=== PATIENT | female | born 1990 | race Hispanic/Latino ===

== ENCOUNTER 2018-09-19 04:11 | Emergency (ER) | payer OTHER ==
[2018-09-19 04:17] VITALS: BMI 39.1
[2018-09-19 04:18] VITALS: RESP 16
--- NOTE | 2018-09-19 04:20 | ED PDOC ---
HPI: General Adult Time Seen by Provider: 09/19/18 04:14 Chief Complaint (Nursing): Lower Extremity Problem/Injury Chief Complaint (Provider): struck by box History Per: Patient (28 y/o female here for evaluation of injury to left foot/right hand after boxes dropped on left foot and she defended self with hand. Notes mild head injury with no LOC>) Past Medical History Reviewed: Historical Data, Nursing Documentation, Vital Signs Vital Signs: Last Vital Signs Temp 98.2 F 09/19/18 04:14 Pulse 79 09/19/18 04:14 Resp 16 09/19/18 04:14 BP 124/71 09/19/18 04:14 Pulse Ox 100 09/19/18 04:14 - Family History Family History: States: Unknown Family Hx (secondary to being adopted) - Home Medications Home Medications: Ambulatory Orders Medication Instructions Recorded Ibuprofen [Motrin] 600 mg PO Q8 PRN #21 tab 09/19/18 - Allergies Allergies/Adverse Reactions: Allergies Allergy/AdvReac Type Severity Reaction Status Date / Time No Known Allergies Allergy Verified 09/19/18 03:55 Review of Systems ROS Statement: Except As Marked, All Systems Reviewed And Found Negative Physical Exam - Reviewed Nursing Documentation Reviewed: Yes Vital Signs Reviewed: Yes - Physical Exam Appears: Positive for: Well, Non-toxic, No Acute Distress Head Exam: Positive for: ATRAUMATIC, NORMAL INSPECTION, NORMOCEPHALIC Skin: Positive for: Normal Color, Warm, DRY Eye Exam: Positive for: EOMI, Normal appearance, PERRL ENT: Positive for: Normal ENT Inspection Neck: Positive for: Normal, Painless ROM Cardiovascular/Chest: Positive for: Regular Rate, Rhythm Respiratory: Positive for: CNT, Normal Breath Sounds Gastrointestinal/Abdominal: Positive for: Normal Exam, Soft Back: Positive for: Normal Inspection Extremity: Positive for: Normal ROM, Tenderness (ecchymosis of dorsum of right hand. FROM.), Swelling (left foot tenderness dorsum) Neurologic/Psych: Positive for: Alert, Oriented - ECG O2 Sat by Pulse Oximetry: 100 - Progress ED Course And Treament: Acetaminophen 975mg x 1 dose XRY OF LEFT FOOT: NO FX XRY OF RIGHT HAND: NO FX Disposition - Clinical Impression Clinical Impression: Contusion of foot, left, Contusion of hand, right - Patient ED Disposition Is Patient to be Admitted: No - Disposition Disposition: Routine/Home Disposition Time: 04:55 Condition: FAIR Prescriptions: Ibuprofen [Motrin] 600 mg PO Q8 PRN #21 tab PRN Reason: Pain, Moderate (4-7) Instructions: Contusion (DC) Forms: [facility] ED School/Work Excuse
[2018-09-19 05:22] VITALS: BP 122/78; PULSE 84; TEMP 98.5; O2SAT 98
--- NOTE | 2018-09-19 09:08 | RAD ---
Date of service: 09/19/2018 PROCEDURE: Left Foot Radiographs. HISTORY: injury COMPARISON: None. FINDINGS: BONES: No acute fracture or destructive bony lesion identified. JOINTS: No dislocation. Mild hallux valgus deformity identified. Mild degenerative sclerosis appreciate the 1st metatarsophalangeal joint. SOFT TISSUES: Limited soft tissue edema is seen related to the dorsal forefoot. Prominent calcification is seen at the insertion of the Achilles tendon and there is a mild plantar calcaneal spur identified. OTHER FINDINGS: None. IMPRESSION: No acute fracture or dislocation identified. Limited forefoot soft tissue edema as discussed above. Mild hallux valgus deformity. Limited forefoot degenerative changes noted.
--- NOTE | 2018-09-19 09:09 | RAD ---
PROCEDURE: Right Hand Radiographs. HISTORY: hand inj COMPARISON: None. FINDINGS: BONES: No acute fracture or destructive bony lesion identified. JOINTS: Normal. No osteoarthritic changes. SOFT TISSUES: Normal. OTHER FINDINGS: None. IMPRESSION: Unremarkable right hand radiographs.
== END 2018-09-19 05:28 | disposition home or self-care (01) ==
LOC: MERGE 04:11 → H.ER 04:11
DX: S60.221A Contusion of right hand, initial encounter (principal); S90.32XA Contusion of left foot, initial encounter; W20.8XXA Other cause of strike by thrown, projected or falling object, initial encounter

== ENCOUNTER 2018-10-22 16:29 | Emergency (ER) | payer BC, OTHER ==
[2018-10-22 16:29] VITALS: BMI 39.1
[2018-10-22 16:36] VITALS: TEMP 97.8
[2018-10-22] MEDS ORDERED: Naproxen 500 MG TAB PO STA (17:05)
--- NOTE | 2018-10-22 17:09 | CP.PCM.CON ---
History of Present Illness - History of Present Illness History of Present Illness: Podiatry consult note for Dr. Hanks, 28 year old female with no past medical history presents to the ED for an evaluation of continuing left foot pain and swelling since 09/19/2018. Patient states at onset, she was at work when a U-boat fell on top of her left foot. Patient had presented to the ED at that time, andx-rays were taken, which showed no acute fracture. Patient reports that her symptoms worsen when she is on her feet for prolonged periods of time.rates her pain 03/08. 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 Past Patient History - Infectious Disease Hx of Infectious Diseases: None - Past Social History Smoking Status: Never Smoked - GENITOURINARY/GYNECOLOGICAL Other/Comment: low menstruation - PSYCHIATRIC Hx Substance Use: No - SURGICAL HISTORY Hx Surgeries: No - ANESTHESIA Hx Anesthesia: No Meds Home Medications: Home Medication List Medication Instructions Recorded Confirmed Type Ibuprofen [Motrin Tab] 800 mg PO Q8 PRN #21 tab 10/22/18 Rx Allergies/Adverse Reactions: Allergies Allergy/AdvReac Type Severity Reaction Status Date / Time No Known Allergies Allergy Verified 09/19/18 08:16 - Medications Medications: Current Medications Naproxen (Naproxen) 500 mg PO STAT STA Stop: 10/22/18 17:06 Physical Exam - Constitutional Appears: Well, Non-toxic, No Acute Distress - Head Exam Head Exam: ATRAUMATIC - Extremities Exam Additional comments: left lower extremity exam: vascular: DP/pT pulses faintly palpable, CFT <3 secs x 5, TG warm to warm, no erythema noted, minimal edema noted at the base of the fourth and fifth toes derm: no open lesions, no erythema, minimal edema at the base of fourth and fifth toes , no clinical signs of infection ortho: no pain with ROM of the toes neuro: protective sensation intact via ipswich 03/02 - Neurological Exam Neurological exam: Alert, Oriented x3 - Psychiatric Exam Psychiatric exam: Normal Affect - Skin Skin Exam: Normal Color Results - Vital Signs Recent Vital Signs: Last Vital Signs Temp 97.8 F 10/22/18 16:33 Pulse 88 10/22/18 16:33 Resp 16 10/22/18 16:33 BP 172/80 H 10/22/18 16:33 Pulse Ox 99 10/22/18 16:33 Assessment & Plan - Assessment and Plan (Free Text) Assessment: 28 yo female seen in the Ed for left foot swelling Plan: patient seen and evaluated history and plan discussed in detail with the attending, dr Hanks x-rays reviewed; no acute osseous abnormality noted patient advised to rest and elevate as much as possible Left foot wrapped with NICOLAS and surgical shoe dispensed patient advised to WBAT patient given a note to sit at work rather than standing. Patient aliya follow up with Dr. Hanks in his office thank you for the consult
--- NOTE | 2018-10-22 17:24 | ED PDOC ---
Lower Extremity Pain/Injury Time Seen by Provider: 10/22/18 16:37 Chief Complaint (Nursing): Lower Extremity Problem/Injury Chief Complaint (Provider): Lower Extremity Problem/Injury History Per: Patient History/Exam Limitations: no limitations Onset/Duration Of Symptoms: Days (1x month), Intermittent Episodes Current Symptoms Are (Timing): Still Present Severity: Moderate Pain Scale Rating Of: 4 Additional Complaint(s): 28 year old female with no past medical history presents to the ED for an evaluation of continuing left foot pain and swelling since 09/19/2018. Patient states at onset, she was at work when a U-boat fell on top of her left foot. Patient was seen in ED that night. XRay taken in ED was unremarkable, and patient was told swelling would resolve with rest, however the swelling persists intermittently, and interferes with her ability to work. Patient reports taking ibuprofen for the pain until today. Patient reports that her symptoms worsen when she is on her feet for prolonged periods of time. Otherwise: (-) other injuries, (-) calf tenderness (-) SOB/cough (-) fever/chills. PMD: None. Past Medical History Reviewed: Historical Data, Nursing Documentation, Vital Signs Vital Signs: Last Vital Signs Temp 97.8 F 10/22/18 16:33 Pulse 88 10/22/18 16:33 Resp 16 10/22/18 16:33 BP 172/80 H 10/22/18 16:33 Pulse Ox 99 10/22/18 16:33 - Medical History Other PMH: obesity - Surgical History Surgical History: No Surg Hx - Family History Family History: States: Unknown Family Hx (secondary to being adopted) - Social History Current smoker - smoking cessation education provided: No - Home Medications Home Medications: Ambulatory Orders Medication Instructions Recorded Ibuprofen [Motrin] 600 mg PO Q8 PRN #21 tab 09/19/18 RX: Ibuprofen [Motrin Tab] 800 mg PO Q8 PRN #21 tab 10/22/18 - Allergies Allergies/Adverse Reactions: Allergies Allergy/AdvReac Type Severity Reaction Status Date / Time No Known Allergies Allergy Verified 09/19/18 08:16 Review of Systems ROS Statement: Except As Marked, All Systems Reviewed And Found Negative Musculoskeletal: Positive for: Foot Pain (left foot pain and swelling) Physical Exam - Reviewed Nursing Documentation Reviewed: Yes Vital Signs Reviewed: Yes - Physical Exam Comments: GENERAL APPEARANCE: Patient is awake, alert, oriented x 3, in no acute distress. Resting comfortably. SKIN: Warm, dry; (-) cyanosis. NECK: Supple, FROM LOWER EXTREMITY: Foot: Tenderness to 4th and 5th metatarsal of left foot. (+) mild edema to dorsum of foot, (-) ecchymosis, (-) warmth, (-) skin break, (+) full ROM of foot and ankle, sensation intact throughout lower extremity, capillary refill <2 seconds. Remainder of lower extremity is nontender with full ROM. (-)calf tenderness. Ambulating in ED with steady gait. CARDIOVASCULAR: (-) irregularity (+) distal pulse. CHEST AND RESPIRATORY: (-) rales, (-) rhonchi, (-) wheezes; breath sounds equal bilaterally. Respirations even and nonlabored. NEUROLOGIC: Mental status as above. Gait: steady. Speech: clear. (-) facial asymmetry (-) aphasia - ECG O2 Sat by Pulse Oximetry: 99 (RA) Pulse Ox Interpretation: Normal - Radiology X-Ray: Viewed By Me, Read By Radiologist (see MDM note) Medical Decision Making Medical Decision Makin:35 Clinical impression: 28 year old female with acute foot pain/contusion. Initial plan: - naproxen 500 mg PO - consult to podiatry. 17:10 Spoke with podiatry resident Jessica Jeffries DPM, agreeable to evaluation in the ED, and recommends repeat XRays of left foot. Repeat XRays ordered. 17:45 XRay foot left read and reviewed by radiologist FINDINGS: BONES: No evidence of acute displaced fracture nor dislocation. The osseous structures appear intact. Small of plantar and posterior calcaneal enthesophytes are present. JOINTS: Minimal hallux valgus deformity. SOFT TISSUES: Redemonstrated is mild dorsal soft tissue swelling most conspicuous at the level of the mid metatarsal region. OTHER FINDINGS: None. IMPRESSION: Redemonstrated is mild dorsal soft tissue swelling nonspecific. Small plantar and posterior calcaneal enthesophyte formation. 1824 Podiatry at bedside. See consult note. 1839 Nick bandage and surgical shoe placed by podiatry. 1839 Repeat BP: 122/59 On exam, patient remains AAOx3, in no acute distress. Lungs clear to auscultation, cardiac RRR, repeat neuro exam shows no focal findings. Vitals stable. Lab/Diagnostic results d/w the patient in great detail. Diagnosis of acute foot pain/contusion d/w the patient. YOSHI encouraged. Based on history, exam and diagnostic results, plan will be for outpatient follow up with podiatry. Patient instructed to follow-up with pmd / referral provided / the clinic in 1- 2 days without fail. Advised to take medication as prescribed. Return to the emergency room at any time for any new or worsening symptoms. Patient states she fully agrees with and understands discharge instructions. States that she agrees with the plan and disposition. Verbalized and repeated discharge instructions and plan. I have given the patient opportunity to ask any additional questions. Scribe Attestation: Documented by Magalys Kwong, acting as a scribe for Magalys Gold. Provider Scribe Attestation: All medical record entries made by the Scribe were at my direction and personally dictated by me. I have reviewed the chart and agree that the record accurately reflects my personal performance of the history, physical exam, medical decision making, and the department course for this patient. I have also personally directed, reviewed, and agree with the discharge instructions and disposition Disposition - Clinical Impression Clinical Impression: Foot contusion, Foot pain - Patient ED Disposition Is Patient to be Admitted: No Counseled Patient/Family Regarding: Studies Performed, Diagnosis, Need For Followup, Rx Given - Disposition Referrals: Michael Mcnamara DPM [Staff Provider] - Disposition: Routine/Home Disposition Time: 18:45 Condition: STABLE Additional Instructions: The emergency medical care you received today was directed at your acute symptoms. If you were prescribed any medication, please fill it and take as directed. It may take several days for your symptoms to resolve. Return to the Emergency Department if your symptoms worsen, do not improve, or if you have any other problems. Please contact your doctor in 2 days for re-evaluation and follow up / or call one of the physicians/clinics you have been referred to that are listed on the Patient Visit Information form that is included in your discharge packet. Bring any paperwork you were given at discharge with you along with any medications you are taking to your follow up visit. Our treatment cannot replace ongoing medical care by a primary care provider (PCP) outside of the emergency department. Prescriptions: RX: Ibuprofen [Motrin Tab] 800 mg PO Q8 PRN #21 tab PRN Reason: pain/swelling Instructions: Muscle and Bone Pain (DC), Contusion (DC) Forms: [employer] (Georgian), [facility] ED School/Work Excuse Print Language: YAKUT - POA Present On Arrival: None
--- NOTE | 2018-10-22 17:48 | RAD ---
Date of service: 10/22/2018 PROCEDURE: Left Foot Radiographs. HISTORY: Rule out fracture COMPARISON: Comparison made with prior radiographs left foot 09/19/2018. FINDINGS: BONES: No evidence of acute displaced fracture nor dislocation. The osseous structures appear intact. Small of plantar and posterior calcaneal enthesophytes are present. JOINTS: Minimal hallux valgus deformity. SOFT TISSUES: Redemonstrated is mild dorsal soft tissue swelling most conspicuous at the level of the mid metatarsal region. OTHER FINDINGS: None. IMPRESSION: Redemonstrated is mild dorsal soft tissue swelling nonspecific.. Small plantar and posterior calcaneal enthesophyte formation.
[2018-10-22] MEDS ORDERED: Naproxen 500 MG TAB PO ONE (18:43)
[2018-10-22 18:49] VITALS: BP 122/59; PULSE 66; RESP 20
[2018-10-22 19:31] VITALS: O2SAT 99
== END 2018-10-22 18:51 | disposition home or self-care (01) ==
LOC: H.ER 16:29
DX: S90.32XA Contusion of left foot, initial encounter (principal); E66.9 Obesity, unspecified; W20.8XXA Other cause of strike by thrown, projected or falling object, initial encounter; Y99.0 Civilian activity done for income or pay

== ENCOUNTER 2018-10-24 08:19 | Emergency (ER) | payer BC ==
[2018-10-24 08:19] VITALS: BMI 39.1
[2018-10-24 08:24] VITALS: TEMP 97.7; O2SAT 98
--- NOTE | 2018-10-24 08:47 | ED PDOC ---
HPI: Abdomen Time Seen by Provider: 10/24/18 08:26 Chief Complaint (Nursing): Abdominal Pain Additional Complaint(s): Pt seen and examined at bedside with attending. 28F no PMH p/w 4 days of vaginal "spotting" and states she has not had a period since 2010. She is sexually active and does not use any contraception with last sexual encounter ~1 week ago. The spotting is associated with lower abd/pelvic pain achiness without fevers, chills, diarrhea, N/V, or urinary pain/burning/frequency. She describes whitish vaginal discharge without itching. Past Medical History Vital Signs: Last Vital Signs Temp 36.5 C 10/24/18 08:23 Pulse 70 10/24/18 08:23 Resp 17 10/24/18 08:23 BP 137/78 10/24/18 08:23 Pulse Ox 98 10/24/18 08:23 - Medical History PMH: No Chronic Diseases - Family History Family History: States: Unknown Family Hx (secondary to being adopted) - Home Medications Home Medications: Ambulatory Orders Medication Instructions Recorded Ibuprofen [Motrin] 600 mg PO Q8 PRN #21 tab 09/19/18 Ibuprofen [Motrin Tab] 800 mg PO Q8 PRN #21 tab 10/22/18 - Allergies Allergies/Adverse Reactions: Allergies Allergy/AdvReac Type Severity Reaction Status Date / Time No Known Allergies Allergy Verified 09/19/18 08:16 Review of Systems ROS Statement: Except As Marked, All Systems Reviewed And Found Negative Genitourinary Female: Positive for: Vaginal Bleeding, Pelvic Pain Physical Exam - Reviewed Vital Signs Reviewed: Yes - Physical Exam Appears: Positive for: Well, Non-toxic Head Exam: Positive for: ATRAUMATIC Skin: Positive for: Normal Color, Warm, Dry Eye Exam: Positive for: Normal appearance, EOMI ENT: Positive for: Normal ENT Inspection Neck: Positive for: Supple Cardiovascular/Chest: Positive for: Regular Rate, Rhythm. Negative for: Murmur Respiratory: Positive for: Normal Breath Sounds. Negative for: Crackles, Rales, Wheezing Gastrointestinal/Abdominal: Positive for: Bowel Sounds, Soft, Tenderness (minimal tenderness on deep palpation) Back: Negative for: L CVA Tenderness, R CVA Tenderness Extremity: Positive for: Other (LEFT foot with kylah wrap and podiatry shoe) Neurologic/Psych: Positive for: Alert, Oriented - Laboratory Results Result Diagrams: 10/24/18 09:05 10/24/18 09:05 - ECG O2 Sat by Pulse Oximetry: 98 Medical Decision Making Medical Decision Making: Ectopic vs. STI vs. menstrual cramps. - Urine dip, U preg - CBC, CMP, GC/Chlamydia - Reeval U preg and urine dip negative. TV ultrasound 02/2018 without acute findings. - Toradol 30mg IM - Reeval 0935 CBC w/o anemia or leukocytosis, CMP WNL Disposition - Clinical Impression Clinical Impression: Menstrual cramps - Patient ED Disposition Is Patient to be Admitted: No Counseled Patient/Family Regarding: Diagnosis, Need For Followup - Disposition Disposition: Routine/Home Disposition Time: 09:48 Condition: IMPROVED Additional Instructions: Follow up with a primary care doctor within 3-5 days Someone will call you if your STI screening is positive Take over the counter Tylenol or Ibuprofen to control pain of menstrual cramping Return to the ER for worsening symptoms or development of fevers, chills, nausea, vomiting, or diarrhea Instructions: Menstrual Cramps (DC) Forms: [employer] (Jamaican), [facility] ED School/Work Excuse
[2018-10-24 09:27] LABS: BASO % 0.2 % (0.0-2.0); EOS # 0.1 K/uL (0.0-0.7); EOS % 1.7 % (0.0-4.0); HEMOGLOBIN 12.6 g/dL (12.0-16.0); LYMPH # 2.4 K/uL (1.0-4.3); LYMPH % 39.7 % (20.0-40.0); MEAN CELL VOLUME 86.1 fl (81.0-99.0); MEAN CORPUSCULAR HEMOGLOBIN 28.1 pg (27.0-31.0); MEAN CORPUSCULAR HGB CONC 32.7 g/dL (33.0-37.0); MEAN PLATELET VOLUME 8.4 fl (7.2-11.7); MONO # 0.3 K/uL (0.0-0.8); MONO % 4.8 % (0.0-10.0); NEUT # 3.3 K/uL (1.8-7.0); NEUT % 53.6 % (50.0-75.0); NRBC % 0.1 % (0.0-0.0); RBC 4.49 Mil/uL (3.80-5.20); RED CELL DISTRIBUTION WIDTH 14.2 % (11.5-14.5); WHITE BLOOD COUNT 6.1 K/uL (4.8-10.8)
[2018-10-24 09:31] LABS: ALB/GLOB RATIO 1.2 (1.0-2.1); ALBUMIN 3.8 g/dL (3.5-5.0); ALT/SGPT 45 U/L (9-52); AST/SGOT 30 U/L (14-36); BLOOD UREA NITROGEN 11 mg/dl (7-17); CALCIUM 8.7 mg/dL (8.4-10.2); GFR NON-AFRICAN AMERICAN > 60
[2018-10-24 11:31] VITALS: BP 130/72; PULSE 74; RESP 18
== END 2018-10-24 10:00 | disposition home or self-care (01) ==
LOC: H.ER 08:19
DX: N89.8 Other specified noninflammatory disorders of vagina (principal); N94.6 Dysmenorrhea, unspecified

== ENCOUNTER 2019-04-21 17:26 | Emergency (ER) | payer BC, OTHER ==
[2019-04-21 17:26] VITALS: BMI 39.1
[2019-04-21 18:25] VITALS: RESP 20
--- NOTE | 2019-04-21 18:46 | ED PDOC ---
HPI: Psych/Substance Abuse Time Seen by Provider: 04/21/19 17:45 Chief Complaint (Nursing): Psychiatric Evaluation Chief Complaint (Provider): Psychiatric Evaluation History Per: Patient History/Exam Limitations: no limitations Suicide/Self Injury Attempted (Context): None Additional Complaint(s): 28 year old obese female with no significant past medical history brought in by ambulance presents to ED for psychiatric evaluation. Patient states she was speaking to sister about boyfriend stating that she just cant live this life anymore. Her sister then told mother with whom she does not speak and mother called 911 because she felt patient was going to hurt herself. Patient denies SI or HI, auditory/visual hallucinations or physical complaints, stating she has custody of someone elses child and would never hurt herself. PMD: none provided Past Medical History Reviewed: Historical Data, Nursing Documentation, Vital Signs Vital Signs: Last Vital Signs Temp 98.2 F 04/21/19 17:27 Pulse 73 04/21/19 18:23 Resp 20 04/21/19 18:23 BP 119/78 04/21/19 18:23 Pulse Ox 99 04/21/19 18:23 Primary Care Provider: Non [facility] Provider, - Medical History PMH: No Chronic Diseases - Surgical History Surgical History: No Surg Hx - Family History Family History: States: Unknown Family Hx (secondary to being adopted) - Social History Current smoker - smoking cessation education provided: No Alcohol: None Drugs: Denies - Immunization History Hx Tetanus Toxoid Vaccination: No Hx Influenza Vaccination: No Hx Pneumococcal Vaccination: No - Home Medications Home Medications: Ambulatory Orders Medication Instructions Recorded Ibuprofen [Motrin] 600 mg PO Q8 PRN #21 tab 09/19/18 Ibuprofen [Motrin Tab] 800 mg PO Q8 PRN #21 tab 10/22/18 - Allergies Allergies/Adverse Reactions: Allergies Allergy/AdvReac Type Severity Reaction Status Date / Time No Known Allergies Allergy Verified 04/21/19 17:32 Review of Systems Constitutional: Negative for: Other (physical complaints) Neurological: Negative for: Other (auditory or visual hallucinations) Psych: Negative for: Suicidal ideation (or HI) Physical Exam - Reviewed Nursing Documentation Reviewed: Yes Vital Signs Reviewed: Yes - Physical Exam Appears: Positive for: No Acute Distress Eye Exam: Positive for: EOMI, Normal appearance, PERRL Cardiovascular/Chest: Positive for: Regular Rate, Rhythm. Negative for: Murmur Respiratory: Positive for: Normal Breath Sounds. Negative for: Respiratory Distress Neurological/Psych: Positive for: Awake, Alert, Oriented (x3), Mood/Affect (appropriate) - ECG O2 Sat by Pulse Oximetry: 99 (RA) Pulse Ox Interpretation: Normal Medical Decision Making Medical Decision Making: Time: 1809 Initial Impression: Initial Plan: --Crisis evaluation 1955 Patient seen by skip pit worker. Stable for d/c home as per Dr. Osorio with diagnosis of adjustment disorder. She is medically stable for discharge. Scribe Attestation: Documented by Lemuel Way, acting as a scribe for Lynn Malik PA-C Provider Scribe Attestation: All medical record entries made by the Scribe were at my direction and personally dictated by me. I have reviewed the chart and agree that the record accurately reflects my personal performance of the history, physical exam, medical decision making, and the department course for this patient. I have also personally directed, reviewed, and agree with the discharge instructions and disposition. Disposition - Clinical Impression Clinical Impression: Adjustment disorder - Patient ED Disposition Is Patient to be Admitted: No Discussed With : Radha Osorio - Disposition Disposition: Routine/Home Disposition Time: 19:58 Condition: STABLE Instructions: Adjustment Disorder Forms: [email or web address] (Lao) Print Language: COMORAN
[2019-04-21 20:21] VITALS: BP 115/72; PULSE 70; TEMP 98.5
[2019-04-22 01:08] VITALS: O2SAT 99
== END 2019-04-21 20:05 | disposition home or self-care (01) ==
LOC: H.ER 17:26
DX: F43.20 Adjustment disorder, unspecified (principal)